=== PATIENT | male | born 1945 | race Caucasian/White ===

== ENCOUNTER → 2017-03-10 | Outpatient (CLI) | payer MEDICARE, BC ==
--- NOTE | ~2017-03-10 | EKG ---
PATIENT: SERGO GALLARDO UNIT #: [id number] Ventricular Rate: 70 BPM Atrial Rate: 70 BPM P-R Interval: 170 ms QRS Duration: 86 ms Q-T Interval: 430 ms QTC Calculation(Bezet): 464 ms P [place]: 66 degrees Calculated R [place]: 1 degrees Calculated T [place]: -64 degrees Diagnosis Line: Sinus rhythm with frequent Premature ventricular Diagnosis Line: complexes in a pattern of bigeminy Diagnosis Line: Low voltage QRS Diagnosis Line: Nonspecific T wave abnormality Diagnosis Line: Prolonged QT Diagnosis Line: Abnormal ECG Diagnosis Line: No previous ECGs available Diagnosis Line: Confirmed by ASIM ACOSTA MD ([id number]) on Diagnosis Line: 03/10/2017 11:12:45 AM INTERPRETING : AIDA
--- NOTE | ~2017-03-10 | EKG ---
[id number] NAME: SERGO GALLARDO MR#: [id number] 1. Baseline electrocardiogram shows normal sinus rhythm. 2. Frequent premature ventricular contractions. 3. Nonspecific ST segment change. 4. No previous tracings are available for comparison. Dictated by...
--- NOTE | ~2017-03-10 | EKG ---
PATIENT: SERGO GALLARDO UNIT #: [id number] Ventricular Rate: 70 BPM Atrial Rate: 70 BPM P-R Interval: 170 ms QRS Duration: 86 ms Q-T Interval: 430 ms QTC Calculation(Bezet): 464 ms P [place]: 66 degrees Calculated R [place]: 1 degrees Calculated T [place]: -64 degrees Diagnosis Line: Sinus rhythm with frequent Premature ventricular Diagnosis Line: complexes in a pattern of bigeminy Diagnosis Line: Low voltage QRS Diagnosis Line: Nonspecific T wave abnormality Diagnosis Line: Prolonged QT Diagnosis Line: Abnormal ECG Diagnosis Line: No previous ECGs available Diagnosis Line: Confirmed by JAIR REID MD ([id number]) on 03/11/2017 Diagnosis Line: 8:17:47 PM INTERPRETING MD: FRANKLIN HONG
[2017-03-10 10:05] LABS: HEMATOCRIT 36.7 % (38.0-50.0); MEAN CELL VOLUME 95.6 FL (83-96); MEAN CORPUSCULAR HEMOGLOBIN 31.1 PG (28-34); MEAN CORPUSCULAR HGB CONC 32.6 g/dL (30-36); MEAN PLATELET VOLUME 7.5 FL (6.5-11.5); RED BLOOD COUNT 3.84 X10e (3.90-5.60); WHITE BLOOD COUNT 7.1 X10e3 (4.0-10.5)
[2017-03-10 11:12] LABS: ALBUMIN SERUM 3.7 g/dL (3.5-5.0); BILIRUBIN,TOTAL 0.4 mg/dL (0.2-2.0); CALCIUM SERUM 9.5 mg/dL (8.4-10.2); GLOM FILT RATE Estimated 74.3 mL/min (>60); POTASSIUM 3.6 mmol/L (3.5-5.1); PROTEIN TOTAL SERUM 6.4 g/dL (6.0-8.3)
== END | disposition home or self-care (01) ==
LOC: CLAB 09:33
PROVIDERS: Surgery Plastic and Reconstructive Surgery
DX: Z01.818 Encounter for other preprocedural examination (principal); C43.9 Malignant melanoma of skin, unspecified; R94.31 Abnormal electrocardiogram [ECG] [EKG]
CPT/HCPCS: 36415; 80053; 85027; 93005